=== PATIENT | male | born 1950 | race Caucasian/White ===

== ENCOUNTER 2022-10-29 09:55 | Day surgery (SDC) | payer MEDICARE, BC ==
[2022-10-28 08:07] LABS: EOSINOPHILS # (AUTO) 0.2 X10'3 (0-0.9); HEMOGLOBIN 11.2 g/dl (14.0-17.9); LYMPHOCYTES # (AUTO) 1.6 X10'3 (1.1-4.8); MONOCYTES # (AUTO) 0.5 X10'3 (0-0.9); NEUTROPHILS # (AUTO) 2.4 X10'3 (1.8-7.7); WHITE BLOOD COUNT 4.7 X10'3 (4.5-11.0)
[2022-10-28 08:11] LABS: BASOPHILS % (AUTO) 0.8 % (0-1); EOSINOPHILS % (AUTO) 3.7 % (0-6); HEMATOCRIT 34.3 % (42.0-52.0); LYMPHOCYTES % (AUTO) 34.1 % (21-51); MEAN CORPUSCULAR HGB CONC 32.8 g/dL (33.0-36.5); MEAN CORPUSCULAR VOLUME 88.4 FL (78-98); MEAN PLATELET VOLUME 11.8 FL (7.4-10.4); MONOCYTES % (AUTO) 10.8 % (2-12); NEUTROPHILS % (AUTO) 50.6 % (42-75); PLATELET COUNT 122 X10'3 (140-440); RED BLOOD COUNT 3.88 X10'6 (4.70-6.10); RED CELL DISTRIBUTION WIDTH 13.4 % (11.5-14.5)
[2022-10-28 08:19] LABS: ALBUMIN 3.5 G/DL (3.4-5.0); ANION GAP 8 (8-16); BLOOD UREA NITROGEN 39 MG/DL (7-18); BUN/CREATININE RATIO 27.5 (5.4-32.0); CALCIUM 8.8 MG/DL (8.5-10.1); CHLORIDE 103 MMOL/L (99-107); CREATININE 1.42 MG/DL (0.60-1.10); GLUCOSE 159 MG/DL (70-104); SODIUM 136 MMOL/L (135-145); TOTAL CARBON DIOXIDE 25.5 MMOL/L (24-32); eGFR 49 ML/MIN
[2022-10-28 08:42] LABS: APTT 24 SECONDS (22-32)
[2022-10-28 09:37] LABS: LARGE PLATELETS MODERATE; PLATELET ESTIMATE NORMAL
[~2022-10-29] VITALS: Ht 180.3 cm; Wt 104.8 kg
[2022-10-29] VITALS (12 sets, daily range): BP systolic 120–185; BP diastolic 48–117
[2022-10-29] MEDS ORDERED: verapamil 2.5 mg/ml inj IV ONE (10:12)
[2022-10-29] MEDS ORDERED: nitroGLYCERIN-Tridil 50MG/D5W 250 ML IV ONE (10:12)
[2022-10-29] MEDS ORDERED: midazolam 1 mg/ML 2ml injection ONE ×2 (10:12→12:12)
[2022-10-29] MEDS ORDERED: FENTANYL CITRATE/PF 50 MCG/1 ML VIAL ONE ×2 (10:12→12:12)
[2022-10-29] MEDS ORDERED: iohexol 300mg/ml 100ml inj. ONE ×2 (10:13→11:54)
[2022-10-29] MEDS ORDERED: heparin 1,000unit/ml 10ml vial 10 ML ONE (10:13)
[2022-10-29] MEDS ORDERED: LIDOcaine 1% (10mg/ml) 2ml vial ONE (10:13)
[2022-10-29] MEDS ORDERED: diphenhydrAMINE 25mg capsule PO PRN (10:15)
[2022-10-29] MEDS ORDERED: acetylcysteine 200 MG/ml 4ml vial PO PRN (10:15)
[2022-10-29] MEDS ORDERED: LORazepam 0.5 MG tablet PO PRN (10:15)
[2022-10-29] MEDS ORDERED: normal saline 1,000 ML IV SCH (10:15)
[2022-10-29] MEDS ORDERED: OMEP20CA16 PO (10:37)
[2022-10-29] MEDS ORDERED: RAMI10CA69 (10:37)
[2022-10-29] MEDS ORDERED: KETO15CR2 (10:37)
[2022-10-29] MEDS ORDERED: ATOR20TA66 PO (10:37)
[2022-10-29] MEDS ORDERED: METF-1203 PO (10:37)
[2022-10-29] MEDS ORDERED: LANTUS SQ (10:37)
[2022-10-29] MEDS ORDERED: ASPI-1071 PO (10:37)
[2022-10-29] MEDS ORDERED: CARV6.2555 PO (10:37)
[2022-10-29] MEDS ORDERED: MOME45CR3 (10:37)
[2022-10-29] MEDS ORDERED: TRIA1TAB3 PO (10:37)
[2022-10-29] MEDS ORDERED: sodium bicarbonate (8.4%) inj. 150 ML in dextrose 5%-water 850 ML IV ONE (10:50)
[2022-10-29] MEDS ORDERED: heparin 25,000 UNIT/250ml bag 250 ML IV ONE (11:54)
[2022-10-29] MEDS ORDERED: heparin 1,000 UNITS/NS 500ml 500 ML ONE (12:15)
[2022-10-29] MEDS ORDERED: iohexol 350 MG/ML 50ML vial IV ONE (12:53)
[2022-10-29] MEDS ORDERED: clopidogrel 300mg tablet ONE (12:58)
[2022-10-29 13:22] LABS: ISTAT HGB ART 10.9 g/dl (14.0-17.9); ISTAT Hct ART 32 %PCV (42-52); ISTAT O2 SATURATION ARTERIAL 92 % (95-98); ISTAT SOURCE ART
[2022-10-29 13:23] LABS: ISTAT Hct MIX 32 %PCV (42-52); ISTAT O2 SATURATION MIX VENOUS 59 % (60-80); ISTAT SOURCE BLNK
[2022-10-29] MEDS ORDERED: sodium bicarbonate (8.4%) inj. 150 MEQ in dextrose 5%-water 850 ML IV SCH (13:50)
[2022-10-29] MEDS ORDERED: sodium bicarbonate (8.4%) inj. 150 MEQ in dextrose 5%-water 850 ML IV ONE (13:50)
[2022-10-30] MEDS ORDERED: FLU VACC QS2022-23(6MOS UP)/PF 60 MCG/0.5 ML SYRINGE IMVAC ONE (15:10)
== END 2022-10-29 20:00 | disposition home or self-care (01) ==
LOC: SSTAY O 09:55
PROVIDERS: ATTEND Internal Medicine Cardiovascular Disease
DX: R07.9 Chest pain, unspecified (principal); I25.10 Atherosclerotic heart disease of native coronary artery without angina pectoris; I10 Essential (primary) hypertension; I35.0 Nonrheumatic aortic (valve) stenosis; E78.5 Hyperlipidemia, unspecified; E11.9 Type 2 diabetes mellitus without complications; Z79.82 Long term (current) use of aspirin; Z79.899 Other long term (current) drug therapy; Z88.6 Allergy status to analgesic agent; Z88.8 Allergy status to other drugs, medicaments and biological substances; Z98.890 Other specified postprocedural states
CPT/HCPCS: 36415; 76937; 80048; 82803; 82948; 85014; 85025; 85347; 85610; 85730; 93005; 93460; 99152; 99153; C1725; C1751; C1769; C1874; C1892; C1894; C9600; J1644; J2250; J3010; J3490; J7030; Q9967; 85008; 90686; A6258; A6402